=== PATIENT | male | born 1980 | race Caucasian/White ===

== ENCOUNTER 2018-09-28 23:07 | Emergency (ER) | payer MEDICAID ==
[2018-09-28] MEDS ORDERED: FAMOTIDINE 20 MG TAB PO ONE (23:31)
--- NOTE | 2018-09-28 23:42 | EDPHY ---
H & P Stated Complaint: VOMITING BLOOD X 1 Time Seen by Provider: 09/28/18 23:18 HPI/ROS: HPI The patient presents with an episode of bloody emesis which occurred just prior to arrival when patient was trying to fall asleep. He felt the quick onset of nausea and then vomited with stomach contents as well as bright red blood. He had a single episode in now feels much better. He last ate at about 1:00 p.m. But did not eat any bright red colored foods. He does not have any abdominal pain. He does not have any dark tarry, black stools or bright red blood though he does report a history of hemorrhoids. He has had intermittent vomiting for quite some time, about 1 year, however has never had any bloody vomitus. He says that often times when he is eating or drinking he has a globus sensation in his esophagus which passes. He says he vomits several times a week. He has been evaluated at several emergency department since his vomiting began. He has had 2 CT scans of his abdomen and pelvis with IV contrast which he reports were normal. He also has had an ultrasound of his abdomen which revealed a fatty liver. He denies any NSAID or aspirin use. He does not drink alcohol. REVIEW OF SYSTEMS 10 systems were reviewed and negative with the exception of the elements mentioned in the history of present illness. PMHx: History of fatty liver Soc Hx: Marijuana use, homeless, new to the area, has not established primary care, no alcohol use PHYSICAL General Appearance: Alert, no distress Eyes: Pupils equal and round no pallor or injection ENT, Mouth: Mucous membranes moist Respiratory: There are no retractions, lungs are clear to auscultation Cardiovascular: Regular rate and rhythm Gastrointestinal: Abdomen is soft and non-tender, no masses, bowel sounds normal Neurological: A&O, moves all extremities Skin: Warm and dry, no rashes Musculoskeletal: Neck is supple non tender Extremities: symmetrical, full range of motion Psychiatric: Patient is oriented X 3, there is no agitation Source: Patient Exam Limitations: No limitations - Personal History Current Tetanus Diphtheria and Acellular Pertussis (TDAP): Unsure - Medical/Surgical History Hx Asthma: No Hx Chronic Respiratory Disease: No Hx Diabetes: No Hx Cardiac Disease: No Hx Renal Disease: No Hx Cirrhosis: No Hx Alcoholism: No Hx HIV/AIDS: No Hx Splenectomy or Spleen Trauma: No Other PMH: VOMITING BLOOD, FATTY LIVER, EAR TUBES, SINUS SX, MJ USE - Social History Smoking Status: Never smoked Constitutional: Initial Vital Signs Temperature (C) 37.3 C 09/28/18 23:11 Heart Rate 85 09/28/18 23:11 Respiratory Rate 16 09/28/18 23:11 Blood Pressure 124/93 H 09/28/18 23:11 O2 Sat (%) 94 09/28/18 23:11 O2 Delivery Mode Room Air Allergies/Adverse Reactions: No Known Allergies Allergy (Unverified 09/28/18 23:11) Home Medications: Medication Instructions Recorded Famotidine [Pepcid 20 MG (*)] 20 mg PO BID #30 tab 09/28/18 Medical Decision Making Differential Diagnosis: 37-year-old male who has a history of fatty liver, who is homeless presents after a single episode of bloody emesis. This occurred about 30 min prior to arrival. Patient is now asymptomatic. He had no preceding abdominal pain. He has frequent episodes of emesis of uncertain origin, has not been evaluated by primary care though has had several visits to various emergency departments with negative evaluations including CT scan and ultrasound. He does not drink alcohol. He is not on any medications, does not use NSAIDs. Here, he looks very well, his abdominal exam is benign. Plan to check basic labs, provide famotidine. I suspect that he has gastritis. However without any ongoing symptoms, dizziness, dark or bloody stools, I doubt any serious bleeding. He could have a soft diet us as well based on his more chronic symptoms. I doubt esophageal varices given no alcohol use. Patient had normal laboratory testing. He had no ongoing symptoms and was observed here for about 1 hr and 45 min. He felt well enough to go home. I discussed return precautions with him if he were to have another episode. I would like him to follow up with [facility] to establish primary care. He may benefit from GI consultation. I will start him on famotidine for presumed gastritis. - Data Points Laboratory Results: Laboratory Results 09/28/18 23:37 09/28/18 23:37 09/28/18 09/28/18 23:37 23:37 WBC 11.16 10^3/uL H 10^3/uL (3.80-9.50) RBC 4.78 10^6/uL 10^6/uL (4.40-6.38) Hgb 15.4 g/dL g/dL (13.7-17.5) Hct 44.9 % % (40.0-51.0) MCV 93.9 fL fL (81.5-99.8) MCH 32.2 pg pg (27.9-34.1) MCHC 34.3 g/dL g/dL (32.4-36.7) RDW 12.5 % % (11.5-15.2) Plt Count 309 10^3/uL 10^3/uL (150-400) MPV 9.1 fL fL (8.7-11.7) Neut % (Auto) 84.0 % H % (39.3-74.2) Lymph % (Auto) 9.6 % L % (15.0-45.0) [place] % (Auto) 5.2 % % (4.5-13.0) Eos % (Auto) 0.4 % L % (0.6-7.6) Baso % (Auto) 0.4 % % (0.3-1.7) Nucleat RBC Rel Count 0.0 % % (0.0-0.2) Absolute Neuts (auto) 9.37 10^3/uL H 10^3/uL (1.70-6.50) Absolute Lymphs (auto) 1.07 10^3/uL 10^3/uL (1.00-3.00) Absolute Monos (auto) 0.58 10^3/uL 10^3/uL (0.30-0.80) Absolute Eos (auto) 0.05 10^3/uL 10^3/uL (0.03-0.40) Absolute Basos (auto) 0.05 10^3/uL 10^3/uL (0.02-0.10) Absolute Nucleated RBC 0.00 10^3/uL 10^3/uL (0-0.01) Immature Gran % 0.4 % % (0.0-1.1) Immature Gran # 0.04 10^3/uL 10^3/uL (0.00-0.10) Sodium 139 mEq/L mEq/L (135-145) Potassium 4.1 mEq/L mEq/L (3.5-5.2) Chloride 104 mEq/L mEq/L (97-110) Carbon Dioxide 26 mEq/l mEq/l (22-31) Anion Gap 9 mEq/L mEq/L (6-14) BUN 10 mg/dL mg/dL (7-23) Creatinine 0.9 mg/dL mg/dL (0.7-1.3) Estimated GFR > 60 Glucose 102 mg/dL H mg/dL (70-100) Calcium 9.3 mg/dL mg/dL (8.5-10.4) Total Bilirubin 0.7 mg/dL mg/dL (0.1-1.4) AST 36 IU/L IU/L (17-59) ALT 62 IU/L IU/L (21-72) Alkaline Phosphatase 85 IU/L IU/L (38-126) Total Protein 7.6 g/dL g/dL (6.3-8.2) Albumin 4.0 g/dL g/dL (3.5-5.0) Medications Given: Discontinued Medications Famotidine (Pepcid) 20 mg PO EDNOW ONE Stop: 09/28/18 23:32 Last Admin: 09/28/18 23:37 Dose: 20 mg Departure - Departure Disposition: Home, Routine, Self-Care Clinical Impression: Hematemesis Qualifiers: Nausea presence: with nausea Qualified Code(s): K92.0 - Hematemesis Condition: Good Instructions: Hematemesis (ED) Additional Instructions: Please return to the emergency department if you have any ongoing symptoms. Otherwise, I would like for you to contact [facility] tomorrow to arrange for an appointment to be seen. Referrals: [facility],. [Clinic] - As per Instructions Prescriptions: Famotidine [Pepcid 20 MG (*)] 20 mg PO BID #30 tab
[2018-09-28 23:46] LABS: PLATELET COUNT 309 10^3/uL (150-400)
[2018-09-29 01:02] VITALS: BP 102/78
== END 2018-09-29 01:02 | disposition home or self-care (01) ==
DX: K92.0 Hematemesis (principal)